=== PATIENT | male | born 1940 | race Caucasian/White ===

== ENCOUNTER 2019-02-22 08:11 | Day surgery (SDC) | payer OTHER ==
[2019-02-22] MEDS ORDERED: fentaNYL CITRATE/PF 100 MCG/2 ML INJ. ONE (08:48)
[2019-02-22] MEDS ORDERED: LACTATED RINGERS 1,000 ML IV.SOLN IV ONE (08:48)
[2019-02-22] MEDS ORDERED: BUPIV. HCL 0.5% (5MG/ML)/EPI. (1:200,000) PF 30 ML VIAL IJ ONE (08:48)
[2019-02-22] MEDS ORDERED: LIDOCAINE HCL 1% PF 300MG/30ML VIAL ONE (08:48)
[2019-02-22] MEDS ORDERED: MIDAZOLAM HCL 2 MG/2 ML VIAL ONE (08:48)
[2019-02-22] MEDS ORDERED: IOHEXOL 240 MG/ML BOTTLE 50 ML ONE (08:48)
== END 2019-02-22 12:17 | disposition home or self-care (01) ==
LOC: OPSURG 08:11
PROVIDERS: ATTEND Physical Medicine & Rehabilitation
DX: M25.561 Pain in right knee (principal); M25.562 Pain in left knee
CPT/HCPCS: 64640; J2001; J2250; J3010; J7120